=== PATIENT | male | born 1985 | race Caucasian/White ===

== ENCOUNTER 2016-12-20 15:00 | Emergency (ER) | payer SELFPAY ==
[2016-12-20 15:00] VITALS: BMI 23.6
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
[2016-12-20 20:18] VITALS: BP 117/72; PULSE 87; RESP 18; TEMP 97.8; O2SAT 100
== END 2016-12-20 20:23 | disposition home or self-care (01) ==
LOC: H.ER 15:00
DX: F10.10 Alcohol abuse, uncomplicated (principal)

== ENCOUNTER 2017-03-26 09:00 | Emergency (ER) | payer MEDICAID ==
[2017-03-26 09:09] VITALS: BP 120/80; PULSE 97; RESP 16; TEMP 98; O2SAT 100; BMI 19.5
[2017-03-26] MEDS ORDERED: Sodium Chloride 0.9% 1,000 ML IV STA (09:30)
[2017-03-26 10:04] LABS: EOS # 0.4 K/uL (0.0-0.7); EOS % 4.9 % (0.0-4.0); HEMOGLOBIN 15.4 g/dL (12.0-18.0); LYMPH % 13.5 % (20.0-40.0); MEAN CELL VOLUME 94.9 fl (80.0-94.0); MEAN CORPUSCULAR HEMOGLOBIN 31.5 pg (27.0-31.0); MEAN CORPUSCULAR HGB CONC 33.1 g/dL (33.0-37.0); MEAN PLATELET VOLUME 9.3 fl (7.2-11.7); MONO # 1.2 K/uL (0.0-0.8); NEUT # 5.1 K/uL (1.8-7.0); NEUT % 65.6 % (50.0-75.0); NRBC % 0.1 % (0.0-0.0); RBC 4.88 Mil/uL (4.40-5.90); RED CELL DISTRIBUTION WIDTH 13.6 % (11.5-14.5); WHITE BLOOD COUNT 7.7 K/uL (4.8-10.8)
--- NOTE | 2017-03-26 10:11 | RAD ---
HISTORY: dyspnea COMPARISON: No prior. FINDINGS: LUNGS: There is a small area of infiltrate seen inferiorly and laterally in the right lower lung field. This may reflect a small pneumonia. No left lung infiltrates are seen. No pneumothorax is noted. Heart is normal in size. Trachea is midline. PLEURA: Mild pleural parenchymal changes are seen in the right costophrenic angle region. This is adjacent to the infiltrate. CARDIOVASCULAR: Normal. OSSEOUS STRUCTURES: No significant abnormalities. VISUALIZED UPPER ABDOMEN: Normal. OTHER FINDINGS: None. IMPRESSION: Small inferior lateral right lower lung field infiltrate at the costophrenic angle region. Infectious process is not excluded.
[2017-03-26 10:16] LABS: ALB/GLOB RATIO 1.3 (1.0-2.1); ALBUMIN 4.2 g/dL (3.5-5.0); ALT/SGPT 43 U/L (21-72); AST/SGOT 31 U/L (17-59); BARBITURATES, UR NEGATIVE (NEGATIVE); BENZODIAZEPINES, UR NEGATIVE (NEGATIVE); BLOOD UREA NITROGEN 14 mg/dl (9-20); CALCIUM 9.6 mg/dL (8.4-10.2); GFR AFRICAN-AMERICAN > 60; GFR NON-AFRICAN AMERICAN > 60; OPIATES, UR NEGATIVE (NEGATIVE)
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
[2017-03-26 10:44] LABS: PHENCYCLIDINE, UR POSITIVE (NEGATIVE)
--- NOTE | 2017-03-27 11:55 | CARD ---
APPROVED REPORT EKG Measurement Heart [id number] <Conclusion> Normal sinus rhythm Normal ECG
== END 2017-03-26 13:47 | disposition home or self-care (01) ==
LOC: H.ER 09:00
DX: J18.9 Pneumonia, unspecified organism (principal); F19.10 Other psychoactive substance abuse, uncomplicated; R07.89 Other chest pain; F17.210 Nicotine dependence, cigarettes, uncomplicated
CPT/HCPCS: 71045; 80053; 80320; 80324; 80345; 80346; 80349; 80353; 80358; 80361; 83992; 84484; 85025; 93005; 96361; 96374; 99283; J1885; J7040

== ENCOUNTER 2017-04-01 23:05 | Emergency (ER) | payer MEDICAID ==
[2017-04-01 23:25] VITALS: BMI 20.2
[2017-04-02 00:22] LABS: BASO # 0.1 K/uL (0.0-0.2); BASO % 1.4 % (0.0-2.0); EOS # 0.3 K/uL (0.0-0.7); EOS % 7.4 % (0.0-4.0); HEMOGLOBIN 14.4 g/dL (12.0-18.0); LYMPH # 1.8 K/uL (1.0-4.3); LYMPH % 40.2 % (20.0-40.0); MEAN CELL VOLUME 94.8 fl (80.0-94.0); MEAN CORPUSCULAR HEMOGLOBIN 30.7 pg (27.0-31.0); MEAN CORPUSCULAR HGB CONC 32.4 g/dL (33.0-37.0); MEAN PLATELET VOLUME 8.8 fl (7.2-11.7); MONO # 0.6 K/uL (0.0-0.8); MONO % 12.4 % (0.0-10.0); NEUT # 1.7 K/uL (1.8-7.0); NEUT % 38.6 % (50.0-75.0); NRBC % 0.1 % (0.0-0.0); RBC 4.69 Mil/uL (4.40-5.90); RED CELL DISTRIBUTION WIDTH 13.1 % (11.5-14.5); WHITE BLOOD COUNT 4.5 K/uL (4.8-10.8)
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
[2017-04-02 00:45] LABS: BARBITURATES, UR NEGATIVE (NEGATIVE); BENZODIAZEPINES, UR NEGATIVE (NEGATIVE); OPIATES, UR NEGATIVE (NEGATIVE)
[2017-04-02 00:46] LABS: BLOOD UREA NITROGEN 18 mg/dl (9-20); GFR AFRICAN-AMERICAN > 60; GFR NON-AFRICAN AMERICAN > 60; PHENCYCLIDINE, UR POSITIVE (NEGATIVE)
[2017-04-02 00:47] LABS: ALB/GLOB RATIO 1.1 (1.0-2.1); ALBUMIN 3.7 g/dL (3.5-5.0); ALT/SGPT 29 U/L (21-72); AST/SGOT 22 U/L (17-59); CALCIUM 8.7 mg/dL (8.4-10.2)
[2017-04-02 02:04] VITALS: BP 127/77; RESP 18; TEMP 98.8
[2017-04-02 02:47] VITALS: PULSE 78; O2SAT 97
--- NOTE | 2017-04-02 09:39 | RAD ---
HISTORY: cough, chest pain COMPARISON: Chest radiograph dated 03/26/2017. TECHNIQUE: Chest PA and lateral FINDINGS: LUNGS: Similar appearance of peripheral right basilar infiltrate. PLEURA: Small right pleural effusion versus pleural reaction, unchanged. No pneumothorax apparent. CARDIOVASCULAR: Normal. OSSEOUS STRUCTURES: No significant abnormalities. VISUALIZED UPPER ABDOMEN: Normal. OTHER FINDINGS: None. IMPRESSION: No significant change in appearance of peripheral right basilar infiltrate with small right effusion versus pleural reaction.
--- NOTE | 2017-04-03 07:28 | CARD ---
APPROVED REPORT EKG Measurement Heart [id number] <Conclusion> Normal sinus rhythm Incomplete RBBB Early repolarization Normal ECG
== END 2017-04-02 02:11 | disposition home or self-care (01) ==
LOC: H.ER 23:05
DX: J18.9 Pneumonia, unspecified organism (principal); R09.1 Pleurisy